=== PATIENT | female | born 1965 | race Caucasian/White ===

== ENCOUNTER 2016-09-19 12:18 | Observation (INO) ==
[2016-09-19] MEDS ORDERED: ONDANSETRON 4 MG/2 ML VIAL ONE ×2 (12:48→14:11)
[2016-09-19] MEDS ORDERED: KETOROLAC 30 MG/1 ML VIAL ONE (12:48)
[2016-09-19] MEDS ORDERED: HYDROmorphone 2 MG/1 ML VIAL ONE (12:48)
[2016-09-19] MEDS ORDERED: HYDROmorphone 2 MG/1 ML VIAL IV STA ×2 (12:49→13:52)
[2016-09-19] MEDS ORDERED: SODIUM CHLORIDE 0.9% 1,000 ML IV STA ×2 (12:49→15:33)
[2016-09-19] MEDS ORDERED: ONDANSETRON 4 MG/2 ML VIAL IV STA ×3 (12:49→15:10)
[2016-09-19] MEDS ORDERED: KETOROLAC 30 MG/1 ML VIAL IV STA (12:49)
[2016-09-19 13:11] LABS: Basophils % 0.3 % (0.0-0.8); Eosinophils # 0.1 10*3/uL (0.0-0.87); Eosinophils % 1.9 % (0.00-10.9); Hematocrit 38.9 VOL% (35.7-47.0); Immature Granulocytes % 0.3 %; Immature Granulocytes Absolute 0.02 #; Lymphocytes # 1.3 10*3/uL (1.4-4.0); Lymphocytes % 19.6 % (21.3-54.2); Mean Corpuscular HGB Conc 33.4 GM/DL (32-36); Mean Corpuscular Hemoglobin 31 PG (27-34); Mean Corpuscular Volume 93.7 FL (87-102); Mean Platelet Volume 10.4 FL (9.6-12.0); Monocytes # 0.5 10*3/uL (0.11-0.8); Monocytes % 6.6 % (1.7-12.7); Neutrophils # 4.9 10*3/uL (1.4-7.4); Neutrophils % 71.3 % (38.7-73.9); Platelet Count 202 T/CUMM (130-400); Red Blood Count 4.15 MC/CUMM (3.8-5.5); Red Cell Distribution Width 12.5 % (9.3-17.3); White Blood Count 6.9 T/CUMM (4-12)
[2016-09-19 13:27] LABS: Albumin 4.1 G/DL (3.4-5.0); Bilirubin,Total 0.5 MG/DL (0.2-1.0); Calcium 9.2 MG/DL (8.5-10.1); Magnesium 2.2 MG/DL (1.8-2.4); Osmolality,Calculated 289.8 MOS/KG (273-304)
--- NOTE | 2016-09-19 13:43 | XRay Report ---
XR KUB Indication: Kidney stones Comparison: Abdominal x-ray dated January 17, 2009 Technique: Frontal views of the abdomen Findings: Nonspecific nonobstructive bowel gas pattern. There is a new 4 mm calculus within the left pelvis which could reflect distal ureteral stone. Osseous structures appear unchanged. Redemonstration of left total hip prosthesis. Lung bases clear. IMPRESSION: As above. PROCEDURE INTERPRETED AT [facility] DEPARTMENT OF RADIOLOGY Final Report Signed by: Dr Nirmal Kang
--- NOTE | 2016-09-19 13:45 | CT Report ---
Referring physician: Jass Lomeli EXAM: CT abdomen and pelvis without contrast DATE: September 19, 2016 COMPARISON: CT abdomen and pelvis July 23, 2011 REASON: Generalized abdominal pain and pelvic pain TECHNIQUE: Axial images of the abdomen and pelvis were obtained without the use of contrast. Coronal and sagittal reformatted images were also provided. Total DLP is 216.4 mGy*cm. FINDINGS: Lower thorax: There is minimal atelectasis at the right lung base. ABDOMEN: Liver: Unremarkable. Gallbladder and bile ducts: The gallbladder is unremarkable. No biliary duct dilatation is present. Pancreas: Unremarkable. Spleen: Unremarkable. Adrenals: Unremarkable. Kidneys and ureters: There is mild left hydronephrosis and dilatation of the left ureter. The distal left ureter is largely obscured by artifact from a left hip prosthesis, but there is likely a 0.3-0.4 cm stone within the distal left ureter near the left UVJ. No right hydronephrosis is present. There are are small bilateral nonobstructing renal calculi, measuring up to 0.3 cm on the left. A 1.2 cm cyst is also suspected at the lower pole of the right kidney, but evaluation is limited by the lack of contrast. PELVIS: Bladder: Unremarkable. Reproductive: The uterus and ovaries are poorly visualized. ABDOMEN AND PELVIS: Bowel: There is no evidence of bowel obstruction, and no convincing bowel inflammation is seen. Appendix: The appendix is not well visualized, but there are no secondary signs of appendicitis. Vasculature: The abdominal aorta is normal in size. There is scattered calcified plaque at the arteries. Peritoneum: No free air or ascites is seen. Lymph nodes: No suspicious adenopathy is seen. Abdominal/pelvic wall: Unremarkable. Bones: The patient is status post left total hip replacement. This produces artifact at the pelvis. There is minimal degenerative change at the right hip. An osseous defect is again seen at the left ilium and could be related to previous surgery. No acute osseous process is identified. IMPRESSION: 1. There is mild left hydronephrosis and dilatation of left ureter. The distal left ureter is largely obscured by artifact from a left hip prosthesis. However, a 0.3-0.4 cm stone is suspected within the distal left ureter near the left UVJ. Followup x-rays would be helpful. 2. Small nonobstructing bilateral renal calculi. 3. Probable right renal cyst. 4. The patient is status post left total hip replacement. The CT exam was performed using one or more of the following dose reduction techniques: Automated exposure control and adjustment of the mA and/or kV according to patient size. PROCEDURE INTERPRETED AT [facility] DEPARTMENT OF RADIOLOGY Final Report Signed by: Dr. Raphael Holder
[2016-09-19 14:10] LABS: Apearance,Urine Slightly Hazy (Clear); Bacteria,Urine Occasional /HPF (Few); Bilirubin,Urine Negative (Negative); Blood, Urine Negative (Negative); Glucose,Urine (UA) Negative (Negative); Ketones,Urine 20 mg/dL (Negative); Mucus,Urine Occasional /LPF (Occasional); Nitrite,Urine Negative (Negative); Protein,Urine Negative; RBC,Urine 9 /HPF (0-4); Squamous Epithelial Cell,Urine Occasional /HPF (0-10); Urine Color Yellow (Yellow); Urine Specific Gravity 1.014 (1.001-1.035); Urine Urobilinogen < 2.0 EU/DL (0.2-1.0); WBC,Urine 1 /HPF (0-6)
[2016-09-19] MEDS ORDERED: METOCLOPRAMIDE 10 MG/2 ML VIAL IV STA (14:55)
[2016-09-19] MEDS ORDERED: METOCLOPRAMIDE 10 MG/2 ML VIAL ONE (14:56)
[2016-09-19] MEDS ORDERED: PROMETHAZINE 25 MG/1 ML VIAL IM STA ×2 (15:12→17:02)
[2016-09-19] MEDS ORDERED: PROMETHAZINE 25 MG/1 ML VIAL ONE ×2 (15:25→17:02)
--- NOTE | 2016-09-19 15:37 | Emergency Department Note ---
Cosmo Ko Brittany, am scribing for, and in the presence of, Jass Lomeli MD 13:12. Yani Ko Charles R, MD, personally performed the services described in this documentation, ascribed by Melany Wilburn in my presence, and it is both accurate and complete 536 . Arrival - Arrival Chief Complaint: Urogenital - Female Stated Complaint: kidney stone ED Nursing Triage Note: Pt c/o left lower back/flank pain started this afternoon. Hematuria last wk. 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 She states the pain radiates into her left lower quadrant. She has had these Sx in past. She has a known medical Hx of kidney stones. Pt reports she was nauseated but is no longer. She reports she had urinary frequency and hematuria 2 weeks ago. Pt has no other complaints/ pain in the ED at this time. Pt has a PMHx of lupus and kidney stones. Pt has has a Left total hip replacement and lithotrispy.. Pt denies a family medical Hx. Pt denies a social Hx. 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) Consistency: constant Severity: moderate, similar to previous episodes Allergies/Adverse Reactions: Allergies Allergy/AdvReac Type Severity Reaction Status Date / Time No Known Allergies Allergy Verified 09/19/16 12:25 Home Medications: Home Medications Medication Instructions Recorded Confirmed Type Hydroxychloroquine [Plaquenil] 200 mg PO DAILY 09/19/16 09/19/16 History Pregabalin [Lyrica] 225 mg PO DAILY 09/19/16 09/19/16 History Review of System - Review of System 12 point system: reviewed and no additional remarkable complaints except as stated - Review of System Gastrointestinal: Present: abdominal pain (Left lower abd pain, left flank pain ), nausea Genitourinary female: Present: hematuria Medical,Surgical,& Family Hx - Medical History Rheumatology: History of;: Systemic Lupus Erythematosus Genitourinary: History of: Kidney Stones (Lithotripsy Dr Greco) - Surgical History Thoracic Surgeries: Surgical HX of;: Lithotripsy Orthopedic Surgeries: Surgical HX of;: Total Hip Replacement (left) - Social History Smoking Status: Never smoker Exam Vital Signs: Vital Signs Temperature 98.2 F 09/19/16 12:37 Pulse Rate 88 09/19/16 12:37 Respiratory Rate 24 09/19/16 12:37 Blood Pressure 172/74 09/19/16 12:37 O2 Sat by Pulse Oximetry 100 09/19/16 12:22 - General General appearance: alert, in no apparent distress - Head Head exam: Present: atraumatic, normocephalic, normal inspection - Eye Eye exam: Present: normal appearance, PERRL, EOMI - ENT ENT exam: Present: normal exam, normal oropharynx, mucous membranes moist - Neck Neck exam: Present: normal inspection, full ROM, trachea midline. Absent: tenderness, thyromegaly - Chest Chest inspection: Present: normal inspection, symmetric chest wall rise. Absent : tenderness, rash, abscess - Respiratory Respiratory exam: Present: normal lung sounds bilaterally. Absent: prolonged expiratory phase, rales, respiratory distress, rhonchi, stridor, wheezes - Cardiovascular Cardiovascular exam: Present: regular rate, normal rhythm, normal heart sounds. Absent: murmur, rubs, gallop, clicks - Abdominal Exam Abdominal exam: Present: soft, tenderness (Left flank tenderness radiates to her left lower quadrant ), normal bowel sounds. Absent: distention, guarding, rebound, rigidity - Extremities Exam Extremities exam: Present: normal inspection, full ROM, normal capillary refill , other (Left prosthetic hip). Absent: tenderness, pedal edema, joint swelling , calf tenderness - Back Exam Back exam: Present: normal inspection, full ROM. Absent: tenderness, muscle spasm, rashes - Neurological Exam Neurological exam: Present: alert, oriented X3, CN II-XII intact, normal gait, reflexes normal. Absent: motor sensory deficit - Psychiatric Psychiatric exam: Present: normal affect, normal mood. Absent: depressed, agitated, anxious - Skin Skin exam: Present: warm, intact, normal color. Absent: diaphoresis Course Course Narrative: Patient continued to have nausea vomiting while in the emergency room. Despite given Reglan Zofran and Phenergan for observation to hydrate - Reevaluation(s) Reevaluation #1: Dr. Blade Greco will admit patient Time: 16:24 Results - Labs CBC & BMP: 09/19/16 12:44 09/19/16 12:44 Lab Results: I have reviewed the patients labs Labs: Laboratory Tests 09/19/16 09/19/16 09/19/16 12:44 12:44 12:44 Lymph % (Auto) 19.6 L Lymph # (Auto) 1.3 L Anion Gap 16.0 H BUN 23 H BUN/Creatinine Ratio 28.00 H AST 509 H Urine Urobilinogen < 2.0 H - Diagnostic Findings Procedure: CT Abdomen and Pelvis: report reviewed by me (1. There is mild left hydronephrosis and dilatation of left ureter. The distal left urter is largely obscured by artifact from a left hip prosthesis. Howerver, a 0.3-0.4 cm stone is suspected within the distal left ureter near the left UVJ. Followup x-rays would be helpful. 2. Small nonobstructing bilateral renal cafculi. 3. Probable right renal cyst. 4. This patient is status post left total hip replacement. ), X-ray: report reviewed by me (Nonspecific nonobstructive bowel gas pattern. There is a new 4 mm calculus within the left pelvis which could reflect distal ureteral stone. Osseous structures appear unchanged. Redemonstarteion of left total hip prosthesis. Lung bases clear. ) Disposition Clinical Impression: Renal colic on left side, Hematuria, Intractable nausea and vomiting, Dehydration Case discussed with: patient Disposition: Still a Patient Condition: Stable Time of Disposition: 16:28
--- NOTE | 2016-09-19 17:51 | Urology History & Physical ---
Assessment and Plan - Time spent with patient Time spent with patient: Greater than 30 minutes (1) Dehydration Status: Acute Current Visit: Yes (2) Hematuria Status: Acute Current Visit: Yes (3) Intractable nausea and vomiting Status: Acute Current Visit: Yes (4) Renal colic on left side Status: Acute Current Visit: Yes (5) Ureteral calculus, left Status: Acute Assessment and plan: The patient has a distal 3-4 millimeters stone on the left. She is having intractable nausea. We'll admit to hydrate her and control and nausea. 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 We will also place her on Flomax. Current Visit: Yes 12 point system: reviewed and no additional remarkable complaints except as stated - Genitourinary Genitourinary: Present: as per HPI, flank pain (left). Absent: difficulty urinating, dysuria, urinary frequency, urinary hesitancy - Hematologic/Lymphatic Hematologic/Lymphatic: Present: as per HPI History of Present Illness Chief complaint: left flank pain History of present illness: Ms. Matthews is a 50 year old female well known to me. She's had stones in the past and had lithotripsies. I have not seen her in the last 5 or 6 years. My associate a 3 millimeter left upper pole stone that we were observing. She developed acute onset left flank pain and was seen emerging department. A CT scan and KUB shows a distal 3-4 millimeter ureteral stone with mild hydronephrosis. She has become pain free but she has intractable nausea. She be admitted for hydration and nausea control. A new diagnosis for her is the lupus. She is on Plaquenil for that. Home Medications Medication Instructions Recorded Confirmed Type Hydroxychloroquine [Plaquenil] 200 mg PO DAILY 09/19/16 09/19/16 History Pregabalin [Lyrica] 225 mg PO DAILY 09/19/16 09/19/16 History Allergies Allergy/AdvReac Type Severity Reaction Status Date / Time No Known Allergies Allergy Verified 09/19/16 12:25 Medical,Surgical,& Family Hx - Medical History Rheumatology: History of;: Systemic Lupus Erythematosus Genitourinary: History of: Kidney Stones (Lithotripsy Dr Greco) Musculoskeletal: History of: Musculoskeletal Problems (left hip surgery times 3 , chronic left hip pain) Hematology: History of: Blood Disorders (Lupus) - Surgical History Thoracic Surgeries: Surgical HX of;: Lithotripsy Orthopedic Surgeries: Surgical HX of;: Total Hip Replacement (left) - Social History Smoking Status: Never smoker Exam - Constitutional Vitals: Period Temp Pulse Resp BP Sys/Armas Pulse Ox Last 24 Hr 73-73 16-16 145-152/81-85 96-97 General appearance: normal weight - Head Head exam: Present: normal inspection - ENT ENT exam: Present: normal exam - Neck Neck exam: Present: normal inspection - Respiratory Respiratory exam: Present: clear to auscultation bilaterally - Cardiovascular Cardiovascular exam: Present: regular rate and rhythm - GI/Abdominal GI/Abdominal exam: Present: tenderness (left flank, mild left CVA tenderness) - Extremities Exam Extremities exam: Present: normal inspection Results - Labs CBC & BMP: 09/19/16 12:44 09/19/16 12:44
[2016-09-19] MEDS ORDERED: MORPHINE PCA 30 MG/30 ML SYRINGE IV SCH (18:09)
[2016-09-19] MEDS ORDERED: ACETAMINOPHEN 325 MG TABLET PO PRN (18:09)
[2016-09-19] MEDS ORDERED: NALOXONE 0.4 MG/ML VIAL IV PRN (18:09)
[2016-09-19] MEDS ORDERED: ONDANSETRON 4 MG/2 ML VIAL IV PRN (18:09)
[2016-09-19] MEDS ORDERED: PROMETHAZINE 25 MG/1 ML VIAL IM PRN (18:09)
[2016-09-19] MEDS: SODIUM CHLORIDE 0.9% 1,000 ML IV SCH (18:10)
[2016-09-20] MEDS: SODIUM CHLORIDE 0.9% 1,000 ML IV SCH ×2 (03:00→10:51)
[2016-09-20 06:01] LABS: Basophils % 0.2 % (0.0-0.8); Eosinophils # 0.1 10*3/uL (0.0-0.87); Eosinophils % 0.9 % (0.00-10.9); Hematocrit 31.9 VOL% (35.7-47.0); Hemoglobin 10.7 GM/DL (12.0-16.0); Immature Granulocytes % 0.3 %; Immature Granulocytes Absolute 0.03 #; Lymphocytes # 1.7 10*3/uL (1.4-4.0); Lymphocytes % 18.4 % (21.3-54.2); Mean Corpuscular HGB Conc 33.5 GM/DL (32-36); Mean Corpuscular Hemoglobin 32 PG (27-34); Mean Corpuscular Volume 94.9 FL (87-102); Mean Platelet Volume 10.6 FL (9.6-12.0); Monocytes # 0.7 10*3/uL (0.11-0.8); Monocytes % 7.5 % (1.7-12.7); Neutrophils # 6.6 10*3/uL (1.4-7.4); Neutrophils % 72.7 % (38.7-73.9); Platelet Count 154 T/CUMM (130-400); Red Blood Count 3.36 MC/CUMM (3.8-5.5); Red Cell Distribution Width 12.6 % (9.3-17.3); White Blood Count 9.1 T/CUMM (4-12)
[2016-09-20 06:37] LABS: Calcium 7.8 MG/DL (8.5-10.1); Osmolality,Calculated 290.4 MOS/KG (273-304); Potassium 4.2 MMOL/L (3.5-5.1)
[2016-09-20] MEDS ORDERED: HYDROXYCHLOROQUINE 200 MG TABLET PO SCH (09:00)
[2016-09-20] MEDS ORDERED: PREGABALIN 75 MG CAPSULE PO SCH (09:00)
[2016-09-20] MEDS ORDERED: TAMSULOSIN 0.4 MG CAPSULE PO SCH (09:00)
--- NOTE | 2016-09-20 11:24 | XRay Report ---
Referring Physician: Jass Lomeli Exam: XR KUB Date: September 20, 2016 at 8:48 AM Reason: Renal stone Comparison: KUB September 19, 2016 Findings: The previously identified 0.4 cm stone within the distal left ureter is no longer identified. Note is made of pelvic phleboliths. Small bilateral renal calculi are present but are not well demonstrated due to bowel gas and stool. There is no evidence of bowel obstruction or free air. The osseous structures appear stable with a left total hip replacement in place. Impression: The previously identified small stone within the distal left ureter is not identified today. PROCEDURE INTERPRETED AT [facility] DEPARTMENT OF RADIOLOGY Final Report Signed by: Dr. Raphael Holder
--- NOTE | 2016-09-20 11:49 | Discharge Summary ---
Hospital Course - Hospital Course Hospital Course: Patient is admitted for intractable nausea. She is feeling much better. Her nausea is subsided. She is having little pain she only uses a little bit of the morphine. We will discharge her. I will write a prescription for Percocet 5 milligrams, #20, one to every 4-6 hours when necessary pain. She has Zofran at home. I will see her in 1 week with a KUB. She is needs to force fluids. Diagnosis - Discharge Diagnosis (1) Dehydration Status: Resolved (2) Hematuria Status: Chronic (3) Intractable nausea and vomiting Status: Resolved (4) Renal colic on left side Status: Resolved (5) Ureteral calculus, left Status: Chronic Discharge Plan - Discharge Data Disposition: Disch To Home/Self Care Condition at Discharge: Stable Discharge Diet: advance to your usual diet Activity: resume usual activities as tolerated Hygiene: no restrictions Weight Bearing at Discharge: full weight bearing Driving: no restrictions Contact your physician if you experience:: fever over 101, Nausea/Vomiting, Bleeding, pain uncontrolled by pain medications - Discharge Medications No Action Pregabalin [Lyrica] 225 mg PO BEDTIME Hydroxychloroquine [Plaquenil] 200 mg PO DAILY Estradiol [Minivelle 0.05 mg/24 hr Patch] 1 patch TRANSDERM MOWE - Follow Up or Referral - Forms/Instructions Exam - Constitutional Vitals: Period Temp Pulse Resp BP Sys/Armas Pulse Ox Last 24 Hr 97.4 F-98.3 F 48-84 16-20 101-157/57-85 96-100 Discharge Results Procedures and tests throughout hospitalization: Pending Orders 09/20/16 04:00 Urinalysis Labs on day of discharge: Labs from last 24 hours 09/20/16 09/20/16 05:26 05:26 WBC 9.1 D RBC 3.36 L Hgb 10.7 L D Hct 31.9 L MCV 94.9 MCH 32 MCHC 33.5 RDW 12.6 Plt Count 154 D MPV 10.6 Neut % (Auto) 72.7 Lymph % (Auto) 18.4 L Lucas % (Auto) 7.5 Eos % (Auto) 0.9 Baso % (Auto) 0.2 Neut # (Auto) 6.6 Lymph # (Auto) 1.7 Lucas # (Auto) 0.7 Eos # (Auto) 0.1 Baso # (Auto) 0.0 Immature Gran % 0.3 Nucleated RBC % 0.0 Immature Gran # 0.03 Nucleated RBCs # 0.00 Sodium 147 H Potassium 4.2 Chloride 112 H Carbon Dioxide 25 Anion Gap 14.2 BUN 14 Creatinine 0.80 GFR Calculation 76 BUN/Creatinine Ratio 17.00 Glucose 71 L Calculated Osmolality 290.4 Calcium 7.8 L DS: Provider Date of admission: 09/19/16 16:29 Primary care physician: . No PCP Attending physician on admission: Blade Greco MD Consults: 09/19/16 18:22 Consult to Pharmacy [CONS] Routine Reason for Pharmacy Consult: Adjust Meds Renal Funct Discharging clinician: Blade Greco MD
[2016-09-20 11:59] VITALS: BP 103/57
[2016-09-24] MEDS ORDERED: ESTRADIOL TRANSDERM SCH (11:49)
== END 2016-09-20 13:32 | disposition home or self-care (01) ==
LOC: N.EDINP 12:18 → N.ED 12:18 → N.5E 16:49
PROVIDERS: ADMIT Urology; ATTEND Urology